=== PATIENT | female | born 1990 | race Caucasian/White ===

== ENCOUNTER 2019-02-22 20:30 | Inpatient (IN) ==
[2019-02-22] MEDS ORDERED: SODIUM CHLORIDE 0.9% INJ ONE (21:10)
[2019-02-22] MEDS ORDERED: PEPCID IV ONE (21:10)
[2019-02-22] MEDS: D5 LR 1,000 ML IV SCH (21:45)
[2019-02-22 23:08] LABS: URINE SOURCE VOIDED
[2019-02-22 23:23] LABS: UR AMPHETAMINES QUAL NONE DETECTED (NONE DETECT); UR BARBITUATES QUAL NONE DETECTED (NONE DETECT); UR BENZODIAZEPIN QUAL NONE DETECTED (NONE DETECT); UR CANNABINOIDS QUAL PRESUMPTIVE POSITIVE (NONE DETECT); UR COCAINE QUAL NONE DETECTED (NONE DETECT); UR METHADONE QUAL NONE DETECTED (NONE DETECT); UR METHAMPHETAMINE QUAL NONE DETECTED (NONE DETECT); UR OPIATES QUAL NONE DETECTED (NONE DETECT); UR OXYCODONE QUAL NONE DETECTED (NONE DETECT); UR PCP QUAL NONE DETECTED (NONE DETECT); UR PROPOXYPHENE QUAL NONE DETECTED (NONE DETECT); UR TCA QUAL NONE DETECTED (NONE DETECT)
[2019-02-22 23:26] LABS: CLARITY VERY CLOUDY (CLEAR); COLOR RED; GLUCOSE URINE NEGATIVE (NEGATIVE)
[2019-02-22 23:27] LABS: BILIRUBIN URINE 1+ (NEGATIVE); BLOOD URINE 1+ (NEGATIVE); KETONE URINE 2+(Moderate) mg/dL (NEGATIVE); LEUKOCYTES URINE 2+ (NEGATIVE); NITRITE URINE NEGATIVE (NEGATIVE); PH URINE 6.5; PROTEIN URINE 1+(30 mg/dL) mg/dL (NEGATIVE); UROBILINOGEN URINE 8 mg/dL
[2019-02-22] MEDS ORDERED: D5 LR 1,000 ML IV SCH (23:45)
[2019-02-23 00:13] LABS: BASO# 0.02 X1000 (0.0-0.2); BASO% 0.2 % (0.0-0.8); EOS# 0.03 X1000 (0.0-0.7); EOS% 0.3 % (0.0-10.0); HEMATOCRIT 29.8 % (37.0-47.0); HEMOGLOBIN 9.6 g/dL (12.0-16.0); IMM GRAN# 0.08 X1000 (0.0-0.04); IMM GRAN% 0.9 % (0.0-0.5); LYMPH# 1.87 X1000 (1.2-3.4); MCH 26.3 PG (27-31); MCHC 32.2 g/dL (33-37); MCV 81.6 FL (81-99); MONO% 7.9 % (1.7-9.3); MPV 10.2 FL (7.4-10.4); NEUT# 6.19 X1000 (1.4-6.5); NEUT% 69.7 % (42.2-75.2); PLT 205 X1000 (130-400); RBC 3.65 XMIL (4.2-5.4); RDW 13.9 % (11.5-14.5); WBC 8.89 X1000 (4.8-10.8)
[2019-02-23 00:26] LABS: ESTIMATED GFR > 60
[2019-02-23 00:30] LABS: AGAP 16; ALBUMIN 3.1 g/dL (3.5-5.0); ALKALINE PHOSPHATASE 231 U/L (32-104); BUN 10 mg/dL (8-22); CALCIUM 7.4 mg/dL (8.8-10.2); CHLORIDE 95 mmol/L (98-107); COSMO 272; CREATININE 0.8 mg/dL (0.5-0.9); GLUCOSE 90 mg/dL (70-104); GOT 20 U/L (10-30); GPT 11 U/L (10-36); SODIUM 137 mmol/L (136-145); TCO2 26 mmol/L (25-35); TOTAL PROTEIN 5.8 g/dL (6.3-8.3)
[2019-02-23 00:32] LABS: POTASSIUM 2.3 mmol/L (3.5-5.1)
[2019-02-23] MEDS ORDERED: HYDROXYZINE IM ONE (00:43)
[2019-02-23] MEDS ORDERED: D5 LR + KCL 20 MEQ 1,000 ML IV SCH (00:45)
[2019-02-23] MEDS ORDERED: POTASSIUM CHLORIDE 20 MEQ/SWI 20 MEQ/100 ML IVPB IV ONE (01:06)
[2019-02-23] MEDS ORDERED: D5 LR 1,000 ML IV SCH (01:15)
[2019-02-23] MEDS: D5 LR 1,000 ML IV SCH ×4 (05:22→20:00)
[2019-02-23 09:30] LABS: ESTIMATED GFR > 60
[2019-02-23 09:41] LABS: AGAP 14; BUN 9 mg/dL (8-22); CHLORIDE 96 mmol/L (98-107); COSMO 273; CREATININE 0.7 mg/dL (0.5-0.9); GLUCOSE 111 mg/dL (70-104); POTASSIUM 2.3 mmol/L (3.5-5.1); SODIUM 137 mmol/L (136-145); TCO2 27 mmol/L (25-35)
[2019-02-23] MEDS: ZOFRAN IV PRN ×2 (10:11)
--- NOTE | 2019-02-23 10:16 | OB/GYN PROGRESS NOTE ---
Progress Note OB - . Patient Problems: Current Active Problems Problem Status Onset 37 weeks gestation of Acute Nausea and vomiting Acute Dehydration Acute Hypokalemia, gastrointestinal losses Acute Hypocalcemia Acute Substernal pain Acute OB Progress Note: Vital Signs - 24 hr 02/22/19 20:40 02/23/19 00:00 02/23/19 05:15 Temperature 97 F L 97 F L 97.4 F L Pulse Rate 105 H 110 H 90 Respiratory Rate 20 20 16 Blood Pressure 109/68 120/61 115/73 O2 Sat by Pulse Oximetry 96 97 99 02/23/19 07:05 02/23/19 07:25 Temperature 98 F Pulse Rate 99 H Respiratory Rate 20 Blood Pressure 122/81 O2 Sat by Pulse Oximetry 95 Laboratory Results - last 24 hr 02/22/19 02/22/19 02/22/19 00:03 00:03 22:40 WBC 8.89 RBC 3.65 L Hgb 9.6 L Hct 29.8 L MCV 81.6 MCH 26.3 L MCHC 32.2 L RDW Std Deviation 13.9 Plt Count 205 MPV 10.2 Immature Gran % (Auto) 0.9 H Neut % (Auto) 69.7 Lymph % (Auto) 21.0 [place] % (Auto) 7.9 Eos % (Auto) 0.3 Baso % (Auto) 0.2 Immature Gran # (Auto) 0.08 H Neut # (Auto) 6.19 Lymph # (Auto) 1.87 [place] # (Auto) 0.70 H Eos # (Auto) 0.03 Baso # (Auto) 0.02 Sodium 137 Potassium 2.3 L* Chloride 95 L Carbon Dioxide 26 Anion Gap 16 BUN 10 Creatinine 0.8 Estimated GFR/1.73 m2 > 60 BUN/Creatinine Ratio 13 Glucose 90 Calculated Osmolality 272 Calcium 7.4 L Total Bilirubin 1.00 AST 20 ALT 11 Alkaline Phosphatase 231 H Total Protein 5.8 L Albumin 3.1 L Globulin 3.0 Albumin/Globulin Ratio 1.0 Urine Source Urine Color Urine Clarity Urine pH Ur Specific [place] Urine Protein Urine Ketones Urine Blood Urine Nitrite Urine Bilirubin Urine Urobilinogen Urine WBC Urine Glucose Urine Opiates Screen NONE DETECTED Ur Oxycodone Screen NONE DETECTED Urine Methadone Screen NONE DETECTED U Propoxyphene Qual NONE DETECTED Ur Barbituates Screen NONE DETECTED Ur Tricyclics Screen NONE DETECTED Ur Phencyclidine Scrn NONE DETECTED Ur Amphetamines Screen NONE DETECTED U Methamphetamines Scrn NONE DETECTED U Benzodiazepines Scrn NONE DETECTED Urine Cocaine Screen NONE DETECTED U Cannabinoids Screen PRESUMPTIVE POSITIVE A 02/22/19 02/23/19 22:40 08:55 WBC RBC Hgb Hct MCV MCH MCHC RDW Std Deviation Plt Count MPV Immature Gran % (Auto) Neut % (Auto) Lymph % (Auto) [place] % (Auto) Eos % (Auto) Baso % (Auto) Immature Gran # (Auto) Neut # (Auto) Lymph # (Auto) [place] # (Auto) Eos # (Auto) Baso # (Auto) Sodium 137 Potassium 2.3 L* Chloride 96 L Carbon Dioxide 27 Anion Gap 14 BUN 9 Creatinine 0.7 Estimated GFR/1.73 m2 > 60 BUN/Creatinine Ratio 13 Glucose 111 H Calculated Osmolality 273 Calcium 7.0 L* Total Bilirubin AST ALT Alkaline Phosphatase Total Protein Albumin Globulin Albumin/Globulin Ratio Urine Source VOIDED Urine Color RED Urine Clarity VERY CLOUDY A Urine pH 6.5 Ur Specific [place] 1.010 Urine Protein 1+(30 mg/dL) A Urine Ketones 2+(Moderate) A Urine Blood 1+ A Urine Nitrite NEGATIVE Urine Bilirubin 1+ A Urine Urobilinogen 8 Urine WBC 2+ A Urine Glucose NEGATIVE Urine Opiates Screen Ur Oxycodone Screen Urine Methadone Screen U Propoxyphene Qual Ur Barbituates Screen Ur Tricyclics Screen Ur Phencyclidine Scrn Ur Amphetamines Screen U Methamphetamines Scrn U Benzodiazepines Scrn Urine Cocaine Screen U Cannabinoids Screen 28 yo WSF followed in [place] by Dr Bergman at [facility], placed in observation on arrival last night with N/V and 16 pound weight loss over the past two weeks, as well as episodes of bilious, dark brown, and bloody emesis. She describes episodic substernal pain radiating to the midback with oral intake After improvement with IVF hydration, Ondansetron, and famotidine IV, she stated she was terribly hungry however experienced immediate recurrence of substernal radiating pain with a few bites of breakfast. She describes uncomplicated previous pregnancies and deliveries and a normal pre gnancy thus far with plans for ultrasound this coming due to size less than dates. Case discussed with Adilene Freeman, Hospitalist service, for assistance with evaluation of suspected peptic ulcer disease vs gallbladder disease, H pylori testing, eg.
[2019-02-23] MEDS: POTASSIUM CHLORIDE 20 MEQ/SWI 20 MEQ/100 ML IVPB IV SCH ×3 (10:27→21:08)
[2019-02-23] MEDS ORDERED: REGLAN IV ONE (10:57)
--- NOTE | 2019-02-23 11:08 | HISTORY AND PHYSICAL ---
ADMITTING DIAGNOSIS: 37 week +2 day with medical complications, including dehydration. HISTORY OF PRESENT ILLNESS: Samaria is a 28-year-old, 3, para 2-0-0-2, white single female, followed by Dr. Bergman at [facility] in [place], [place], presenting late last night with persistent nausea, substernal pain, vomiting, and reporting a 16 pound weight loss with the persistence of the symptoms over the past approximately 14 days. On arrival, she was quite demonstrative and system review included bilious followed by dark brown and jasmin blood episodes of emesis, recently returning to a yellow color. She recalls outpatient treatment with 2 L of IV fluids sometime last week, and a normal visit with Dr. Bergman on of last week, at which time she was treated with Macrobid and Prilosec. She returned to be seen today because she was in the area visiting family, and wishes to transfer care to [facility]. SYSTEM REVIEW: Negative for headache, visual change, peripheral swelling, decreased movement, vaginal bleeding, leakage of fluid, vaginitis symptoms, constipation, diarrhea. She notes episodes of fever and chills, but denies overt fever. She notes a history of borderline personality and previous medical treatment with Lexapro, Klonopin, lithium, Topamax, and Lamictal, but has not required therapy or taken medication for the past year. PHYSICAL EXAMINATION: VITAL SIGNS: On arrival, included afebrile, temperature 97 degrees, pulse 105, respirations nonlabored 20, pressure 110/70, oxygen saturation 96% pulse oximetry, weight 66.2 kg, stated height 4 feet 11 inches. GENERAL: Initial agitation was noted with nursing assessment including blood pressure cuff, and this has tempered somewhat overnight at this dictation. HEENT: Unremarkable. Pupils are equal, round, and reactive. Sclerae are clear. Mucous membranes are moist. Tongue is pale. Pharynx is benign. Dentition is intact. NECK: Supple. Thyroid is without enlargement or tenderness. RESPIRATIONS: Even and unlabored. Breath sounds are clear to auscultation to the bases. CARDIOVASCULAR: Reveals normal rate and rhythm without murmur or gallop, and current heart rate 90. There is trace peripheral edema of the feet and hands. ABDOMEN: Benign, soft, and nontender. She points to an area of the lower sternum which has been a location of severe aching pain, worsened by oral intake, and states this pain radiates to the midback when it occurs. Fundus is soft and nontender. Fundal height 33, longitudinal lie, cephalic presentation. PELVIC: Examination was not repeated in the absence of regular contractions, and was thought to be 1 to 2, 50 percent, -2 on arrival. heart rate tracing is reactive and reassuring, category 1. She responded only partially to IV fluid hydration. INITIAL LABS: Hypokalemia 2.3 mEq/L, decreased chloride 95, BUN 10, creatinine 0.8, calcium 7.4. Normal liver function tests. Hemoglobin 9.6, normal platelets 205,000, normal differential. Urinalysis: Cloudy, red, 1+ protein, 2+ ketones, 1+ blood, negative nitrites, 2+ WBCs. Urine drug screen revealed presumptive positive cannabinoids. ASSESSMENT: 1. 37 week with nausea, vomiting, and dehydration. 2. Gastritis, possible peptic ulcer. 3. Possible gallbladder disease. 4. Marijuana use. 5. Short stature. 6. Borderline personality and previous treatment for anxiety and depression, not on medication. 7. Desire for transfer of care to [facility]. PLAN: 1. Treated and responded partially to intravenous fluid bolus with promethazine, and received 20 mEq of potassium, and slept soundly after a dose of ondansetron. She verbalizes a good appetite this morning. Recheck labs include potassium 2.3 and calcium 7. 2. Plan light diet with continued hydration, potassium supplementation, and anticipation of discharge. 3. She is scheduled for ultrasound in Dr. Bergman's office this week, and I encouraged her to follow through with care in [place] until she secures an appointment here. Records request has been sent for her records. She expresses good understanding of the issues and recommendations discussed.
[2019-02-23] MEDS: PRILOSEC PO SCH (11:59)
[2019-02-23] MEDS: G.I. COCKTAIL PO SCH ×2 (12:38→17:03)
--- NOTE | 2019-02-23 13:06 | Diag Imaging Result Doc PS360 ---
EXAM: US ABDOMEN-COMPLETE HISTORY: 37 week with substernal pain, N/V TECHNIQUE: Abdominal ultrasound COMPARISON: None. FINDINGS: Normal pancreatic head and body. The tail is obscured. Normal inferior vena cava. No aortic aneurysm. Prominent right-sided hydronephrosis. No focal hepatic abnormality. There is sludge versus small stones within the gallbladder. The wall is not thickened. The common bile duct measures 3 mm. Normal left kidney. No hydronephrosis. Normal spleen. No ascites.. IMPRESSION: Prominent right-sided hydronephrosis. Electronically signed by Keny Mccracken 02/23/2019 1:03 PM
--- NOTE | 2019-02-23 16:57 | CONSULTATION ---
DATE OF CONSULTATION: 02/23/2019 REASON FOR CONSULTATION: Abdominal pain. HISTORY OF PRESENT ILLNESS: Patient is a 28-year-old female who is currently . She presented to the hospital with epigastric pain and subsequently had some bilious dark brown emesis. She describes as substernal pain, hurts when she eats or drinks. Does not matter what she eats or drinks. In fact, she had 1 bite of toast and 1 small bite of a banana and started vomiting. PAST MEDICAL HISTORY: No current active medical problems. ALLERGIES: None. PRESCRIPTION MEDICATIONS: None. FAMILY HISTORY: Noncontributory. SOCIAL HISTORY: Does not drink. Denies alcohol or cigarettes. PHYSICAL EXAMINATION: Vital Signs: Reviewed. Temperature 97 degrees, pulse 105, respiratory, blood pressure 115/73, saturating 99% on room air. General: Patient is awake, alert. She is in no current respiratory distress. HEENT: Normocephalic. Neck: Supple. Cardiovascular: Regular rate. No murmurs. Chest: Clear, nonlabored. Abdomen: Soft, gravid, tender in the epigastric right upper quadrant region. Extremities: Moves all extremities. No focal changes. No edema. Skin: No rashes. ASSESSMENT: 1. Epigastric abdominal pain. 2. Nausea and vomiting, 3. Hypokalemia. PLAN: We will give patient a GI cocktail, replace her potassium. Continue Protonix twice daily. Continue IV fluids. Check an ultrasound of her abdomen and will follow. cc: Lyndon Head MD
[2019-02-23 18:41] LABS: AGAP 14; BUN 8 mg/dL (8-22); CHLORIDE 99 mmol/L (98-107); COSMO 276; CREATININE 0.6 mg/dL (0.5-0.9); ESTIMATED GFR > 60; GLUCOSE 99 mg/dL (70-104); POTASSIUM 2.7 mmol/L (3.5-5.1); SODIUM 139 mmol/L (136-145); TCO2 26 mmol/L (25-35)
[2019-02-23] MEDS: SODIUM CHLORIDE 0.9% INJ SCH (21:06)
[2019-02-23] MEDS: PROTONIX IV SCH (21:06)
[2019-02-24] MEDS: D5 LR 1,000 ML IV SCH ×2 (03:45→10:05)
[2019-02-24] MEDS: POTASSIUM CHLORIDE 20 MEQ/SWI 20 MEQ/100 ML IVPB IV SCH (03:50)
[2019-02-24 06:10] LABS: HEMATOCRIT 27.3 % (37.0-47.0); HEMOGLOBIN 8.4 g/dL (12.0-16.0); MCH 25.9 PG (27-31); MCHC 30.8 g/dL (33-37); MCV 84.3 FL (81-99); MPV 10.4 FL (7.4-10.4); RBC 3.24 XMIL (4.2-5.4); RDW 13.8 % (11.5-14.5); WBC 6.34 X1000 (4.8-10.8)
[2019-02-24 06:38] LABS: AGAP 11; ALBUMIN 2.6 g/dL (3.5-5.0); ALKALINE PHOSPHATASE 200 U/L (32-104); BUN 6 mg/dL (8-22); CALCIUM 7.2 mg/dL (8.8-10.2); CHLORIDE 105 mmol/L (98-107); COSMO 280; CREATININE 0.6 mg/dL (0.5-0.9); ESTIMATED GFR > 60; GLUCOSE 81 mg/dL (70-104); GOT 16 U/L (10-30); GPT 10 U/L (10-36); MAGNESIUM 1.6 mg/dL (1.5-2.7); SODIUM 142 mmol/L (136-145); TCO2 26 mmol/L (25-35); TOTAL PROTEIN 5.1 g/dL (6.3-8.3)
[2019-02-24] MEDS: PRILOSEC PO SCH (07:14)
[2019-02-24] MEDS: SODIUM CHLORIDE 0.9% INJ SCH (08:37)
[2019-02-24] MEDS: PROTONIX IV SCH (08:37)
[2019-02-24] MEDS: G.I. COCKTAIL PO SCH ×2 (08:42→14:11)
[2019-02-24] MEDS ORDERED: POTASSIUM CHLORIDE 20 MEQ/SWI 20 MEQ/100 ML IVPB IV ONE (09:00)
--- NOTE | 2019-02-24 11:03 | OB/GYN PROGRESS NOTE ---
Progress Note OB - . Patient Problems: Current Active Problems Problem Status Onset Hydronephrosis determined by ultrasound Acute Substernal pain Acute Hypocalcemia Acute Hypokalemia, gastrointestinal losses Acute Dehydration Acute Nausea and vomiting Acute 37 weeks gestation of Acute OB Progress Note: Vital Signs - 24 hr 02/23/19 12:00 02/23/19 16:00 02/23/19 20:00 Temperature 97.5 F L 97.2 F L 97.7 F Pulse Rate 90 87 94 H Respiratory Rate 20 18 18 Blood Pressure 114/71 110/69 114/75 O2 Sat by Pulse Oximetry 97 99 100 02/24/19 00:09 02/24/19 03:48 02/24/19 07:15 Temperature 97.6 F 97.7 F Pulse Rate 98 H 88 92 H Respiratory Rate 18 16 16 Blood Pressure 116/61 104/51 118/78 O2 Sat by Pulse Oximetry 98 97 99 Laboratory Results - last 24 hr 02/23/19 02/24/19 02/24/19 18:09 05:54 05:54 WBC RBC Hgb Hct MCV MCH MCHC RDW Std Deviation Plt Count MPV Sodium 139 142 Potassium 2.7 L D 3.0 L Chloride 99 105 Carbon Dioxide 26 26 Anion Gap 14 11 BUN 8 6 L Creatinine 0.6 0.6 Estimated GFR/1.73 m2 > 60 > 60 BUN/Creatinine Ratio 13 10 Glucose 99 81 Calculated Osmolality 276 280 Calcium 7.0 L* 7.2 L Magnesium 1.6 Total Bilirubin 0.80 AST 16 ALT 10 Alkaline Phosphatase 200 H Total Protein 5.1 L Albumin 2.6 L Globulin 3.0 Albumin/Globulin Ratio 1.0 TSH 2.49 02/24/19 05:54 WBC 6.34 RBC 3.24 L Hgb 8.4 L Hct 27.3 L MCV 84.3 MCH 25.9 L MCHC 30.8 L RDW Std Deviation 13.8 Plt Count 160 MPV 10.4 Sodium Potassium Chloride Carbon Dioxide Anion Gap BUN Creatinine Estimated GFR/1.73 m2 BUN/Creatinine Ratio Glucose Calculated Osmolality Calcium Magnesium Total Bilirubin AST ALT Alkaline Phosphatase Total Protein Albumin Globulin Albumin/Globulin Ratio TSH
[2019-02-24 11:17] LABS: BILIRUBIN URINE 1+ (NEGATIVE); BLOOD URINE 4+ (NEGATIVE); GLUCOSE URINE NEGATIVE (NEGATIVE); KETONE URINE TRACE mg/dL (NEGATIVE); LEUKOCYTES URINE 2+ (NEGATIVE); NITRITE URINE NEGATIVE (NEGATIVE); PROTEIN URINE 1+(30 mg/dL) mg/dL (NEGATIVE); UROBILINOGEN URINE 8 mg/dL
[2019-02-24 11:18] LABS: CLARITY VERY CLOUDY (CLEAR); COLOR YELLOW
[2019-02-24 11:19] LABS: URINE BACTERIA 3+ /HFP; URINE RBC TNTC /HPF (<10); URINE SOURCE CLEAN CATCH; URINE WBC 20-40 /HPF (<10)
[2019-02-24] MEDS ORDERED: NS 1,000 ML IV SCH (12:00)
[2019-02-24] MEDS ORDERED: ROCEPHIN 2 GM in NS 50 ML IV ONE (12:30)
[2019-02-24 13:35] VITALS: BP 137/85
--- NOTE | 2019-02-24 15:38 | DISCHARGE SUMMARY ---
ADMISSION DATE: 02/22/2019 DISCHARGE DATE: 02/24/2019 ADMITTING DIAGNOSIS: A 37-week with medical complications, including nausea/vomiting, dehydration, and substernal pain. FINAL DISCHARGE DIAGNOSES: 1. A 37+ week , undelivered, with medical complications. 2. Oliguria, hematuria, unresponsive to intravenous fluid hydration. 3. Peptic ulcer symptoms, responding to medical management. 4. Urinary tract infection. 5. Previous marijuana use. TRANSFER MEDICATIONS: 1. Rocephin 2 g IV in process. 2. Normal saline IV fluids 100 mL/h. 3. Protonix 40 mg IV q.12 h. HISTORY OF PRESENT ILLNESS: Samaria is a 28-year-old 3, para 2-0-0-2, white single female, former smoker, followed by Dr. Bergman of [facility] in [place], [place], presenting here late on the evening of Monday, February 22, with a 2-week history of nausea/vomiting, intolerance of oral intake, 16-pound weight loss, and substernal pain worsening with attempts to eat. Following admission, she gave additional history of progressively darkening discolored urine for the past 3 to 4 weeks and recalls being given a prescription of Macrobid for apparent UTI of which she was able to take 1 dose on the and vomited her attempted dose on the morning of February 22. Admission laboratories included electrolytes with hypokalemia. Creatinine 0.8, BUN 13. Liver functions normal. Urinalysis after a liter of IVF fluid revealed 1.010 specific gravity, 1+ blood, 1+ protein, 2+ ketones, 2+ WBC, bacteria not listed. Urine screen revealed presumptive positive cannabinoids. White count was 8.9, hemoglobin 9.6, hematocrit 29.8, platelets 205,000. Hospitalist consult was obtained, and treatment for peptic ulcer symptoms begun with GI cocktail 3 times daily and Protonix 40 mg IV twice daily. She responded briefly to Phenergan and Zofran overnight Monday with immediate resumption of symptoms after a bite of toast and eggs Monday morning. Intravenous hydration at 200 mL/hr and postassium supplementation totaling over 80 mEq were given Imaging included gallbladder revealing possible sludge, normal ducts, significant right hydronephrosis, and a possible R calyceal renal stone. Despite hydration at 200 mL an hour, urine output remained nominal. Over the course of her hospitalization, she has received approximately 8 L of fluid with less than 1 L output. Electrolytes today reveal potassium up to 3.0. Liver functions normal. Magnesium 1.6. TSH 2.49. Urinalysis: Specific gravity is 1.000 with an increase to 4+ blood, red blood cells too numerous to count, 2+ white cells, 20-40 WBCper high-power field, and 3+ bacteria. Microscopic had not obtained on admission. PHYSICAL EXAMINATION: Her examination is benign. Abdomen is soft and nontender. I cannot elicit right-sided CVA tenderness. Fundus is soft and nontender. Fundal height 33 mm, consistent with her short stature. heart rate tracing is category 1. Cervix on arrival was 1 to 2 cm, 50%, - 2 station. Membranes intact and regular contractions have not occurred during her hospitalization. On discussion with the urologist on staff, evaluation would be challenging due to the absence of surgical facilities at this hospital and the absence of maternity facilities at the [facility]. I discussed the case with Dr. Allie Galvan, the OB hospitalist and [facility] [place] [facility], who has accepted the patient for further evaluation of oliguria, hematuria, UTI, hydronephrosis at 37 weeks . I have discussed the rationale for transfer of care with [facility], including the need for appropriate specialists to be present in the same facility with the possibility of proceeding with delivery, in order to evaluate the renal concerns with appropriate imaging and instrumentation thereafter. She expresses good understanding and agreement with the plan of care and arrangements are in progress for ambulance transfer to [facility] [place] [facility] this afternoon. cc: Allie Galvan MD [facility] SYSTEM[facility]
--- NOTE | 2019-02-24 22:34 | PROGRESS NOTE ---
DATE: 02/24/2019 SUBJECTIVE: Patient notes that she is feeling tremendously better this morning. Her nausea is improved with the GI cocktail. Denies any fevers or chills. PHYSICAL EXAMINATION: Vital Signs: Reviewed. General: She is awake, alert. She is in no distress. HEENT: Normocephalic. Neck: Supple. Cardiovascular: Regular rate. No murmurs. Chest: Clear and nonlabored. Abdomen: Soft, nondistended, nontender in the epigastric region today. Extremities: Moves all extremities. ASSESSMENT: 1. Hypokalemia. Continue to replace. 2. Epigastric pain. Expect this is more due to peptic ulcer disease. 3. . 4. Hydronephrosis of undetermined origin. PLAN: We will continue patient on GI cocktail. Continue to follow. I believe a urine culture has already been ordered and this needs to be followed up as she certainly could have the infection causing her hydronephrosis or simply due to . We will follow. cc: Lyndon Head MD
== END 2019-02-24 13:48 | disposition short-term general hospital (02) | DRG 832 ==
LOC: P.OPLD 20:30 → P.DIRADM 20:30 → P.LD 20:39 → EDCLIBED 20:40 → P.LD 02-23 13:48 → P.OPLD 02-24 13:48 → P.LD 02-27 10:03
PROVIDERS: ADMIT Obstetrics & Gynecology; ATTEND Obstetrics & Gynecology
CPT/HCPCS: 76700; 80048; 80053; 80104; 80301; 80305; 81001; 81003; 83735; 84443; 85025; 85027; 87077; 87088; 87186; A9270; C9113; G0431; G0434; G0477; J0696; J2405; J2765; J3480; J7030; J7121; S0028; S0164

== ENCOUNTER 2019-03-02 19:35 | Inpatient (IN) ==
[2019-03-02 19:59] LABS: URINE SOURCE VOIDED
[2019-03-02 20:06] LABS: BILIRUBIN URINE NEGATIVE (NEGATIVE); BLOOD URINE NEGATIVE (NEGATIVE); CLARITY CLEAR (CLEAR); COLOR YELLOW; GLUCOSE URINE NEGATIVE (NEGATIVE); KETONE URINE NEGATIVE (NEGATIVE); LEUKOCYTES URINE TRACE (NEGATIVE); NITRITE URINE NEGATIVE (NEGATIVE); PROTEIN URINE NEGATIVE (NEGATIVE); SP GRAVITY URINE 1.005; UROBILINOGEN URINE NORMAL
[2019-03-02 20:48] LABS: UR AMPHETAMINES QUAL NONE DETECTED (NONE DETECT); UR BARBITUATES QUAL NONE DETECTED (NONE DETECT); UR BENZODIAZEPIN QUAL NONE DETECTED (NONE DETECT); UR CANNABINOIDS QUAL NONE DETECTED (NONE DETECT); UR COCAINE QUAL NONE DETECTED (NONE DETECT); UR METHADONE QUAL NONE DETECTED (NONE DETECT); UR METHAMPHETAMINE QUAL NONE DETECTED (NONE DETECT); UR OPIATES QUAL NONE DETECTED (NONE DETECT); UR OXYCODONE QUAL NONE DETECTED (NONE DETECT); UR PCP QUAL NONE DETECTED (NONE DETECT); UR PROPOXYPHENE QUAL NONE DETECTED (NONE DETECT); UR TCA QUAL NONE DETECTED (NONE DETECT)
[2019-03-02] MEDS ORDERED: REGLAN PO ONE (20:54)
[2019-03-02] MEDS ORDERED: PEPCID PO ONE (20:54)
[2019-03-02] MEDS ORDERED: AMPICILLIN 2 GM/NS 2 GM/100 ML IVPB IV ONE (20:54)
[2019-03-02] MEDS ORDERED: PEPCID PO PRN (20:54)
[2019-03-02] MEDS ORDERED: ZOFRAN IV PRN (20:54)
[2019-03-02] MEDS ORDERED: STADOL IV PRN (20:54)
[2019-03-02] MEDS ORDERED: KEFZOL 1 GM/D5W 1 GM/50 ML IVPB IV PRN (20:54)
[2019-03-02] MEDS ORDERED: PEPCID IV PRN (20:54)
[2019-03-02] MEDS ORDERED: TYLENOL PO PRN (20:54)
[2019-03-02] MEDS ORDERED: PITOCIN 30 UNITS/NS 30 UNIT/500 ML IV.SOLN IV SCH (21:00)
[2019-03-02] MEDS ORDERED: SODIUM CHLORIDE 0.9% INJ SCH (21:00)
[2019-03-02] MEDS: LR 1,000 ML IV SCH (22:55)
[2019-03-02 23:54] LABS: BASO# 0.02 X1000 (0.0-0.2); BASO% 0.2 % (0.0-0.8); HEMOGLOBIN 8.5 g/dL (12.0-16.0); RDW 14.4 % (11.5-14.5)
--- NOTE | 2019-03-02 23:59 | HISTORY AND PHYSICAL ---
CHIEF COMPLAINT: Leakage of fluid. HISTORY OF PRESENT ILLNESS: Ms Ordaz is a 28-year-old G3, P2-0-0-2 at 38 weeks and 3 days per patient calculations with complaint of leakage of fluid. Patient admits to spontaneous rupture of membranes occurring this evening. Denies abdominal pain, fevers, chills, nausea, vomiting, reports good movement, denies vaginal bleeding. MEDICATIONS: Include Prilosec and vitamins. PAST MEDICAL HISTORY: Anxiety, depression, GERD, recurrent urinary tract infections with current . PAST SURGICAL HISTORY: Denied. LEAD SYSTEMS ENGINEER HISTORY: Denies STI exposure. OBSTETRICAL HISTORY: G3, P2-0-0-2, 2 prior term vaginal delivery. SOCIAL HISTORY: Denies tobacco, alcohol, or drug use. ALLERGIES: No known drug allergies. FAMILY HISTORY: Noncontributory. PHYSICAL EXAMINATION: VITAL SIGNS: Temperature 97.7 degrees, blood pressure 135/82, pulse rate 103, respiration rate 18, O2 saturations 100% on room air . GENERAL: No acute distress. Alert, awake, oriented x3. CARDIOVASCULAR: Regular rate and rhythm. Positive S1, S2. RESPIRATION: Clear to auscultation bilaterally. No rhonchi or rales. No wheezing. ABDOMEN: Gravid, soft, nontender to palpation. EXTREMITIES: No calf tenderness. Sterile vaginal exam 3 cm dilated, 50% effaced, -2 station. ULTRASOUND: showed 37 weeks and 2 day fetus with ROCIO of 11.5 in vertex position, ROM plus: positive for membrane rupture. NST:reactive, CAT TOCO:irregular contractions. ASSESSMENT: Ms. Ordaz is a 28-year-old G3, P2-0-0-2 at 37 weeks and 2 days based on today's ultrasound but patient reporting GA of 38 weeks and 3 days, who presents to Labor and Delivery with spontaneous rupture of membranes. PLAN: 1. Admit to Labor and Delivery for anticipated vaginal delivery. 2. Obtain labs. Patient has had care but currently Labor and Delivery has not been able to obtain records . 3. Will advance with IV Pitocin if no cervical change noted. 4. Will start GBS prophylaxis based on unknown GBS status with ampicillin. 5. Will continue monitoring and toco monitoring. [facility]
[2019-03-03 00:51] LABS: RAPID HIV PRESUMPTIVE NEGATIVE
[2019-03-03 00:58] LABS: EOS# 0.14 X1000 (0.0-0.7); EOS% 1.7 % (0.0-10.0); HEMATOCRIT 27.3 % (37.0-47.0); IMM GRAN# 0.09 X1000 (0.0-0.04); IMM GRAN% 1.1 % (0.0-0.5); LYMPH# 2.14 X1000 (1.2-3.4); LYMPH% 25.9 % (20.5-51.1); MCH 25.9 PG (27-31); MCHC 31.1 g/dL (33-37); MCV 83.2 FL (81-99); MONO# 0.94 X1000 (0.11-0.59); MONO% 11.4 % (1.7-9.3); MPV 10.9 FL (7.4-10.4); NEUT# 4.92 X1000 (1.4-6.5); NEUT% 59.7 % (42.2-75.2); PLT 194 X1000 (130-400); RBC 3.28 XMIL (4.2-5.4); WBC 8.25 X1000 (4.8-10.8)
[2019-03-03 01:14] LABS: RPR NON-REACTIVE (NONREACTIVE)
[2019-03-03] MEDS: AMPICILLIN 1 GM/NS 1 GM/50 ML IVPB IV SCH ×3 (03:00→11:00)
--- NOTE | 2019-03-03 07:06 | OB/GYN PROGRESS NOTE ---
Progress Note OB - . Patient Problems: Current Active Problems Problem Status Onset membrane rupture Acute PROM with onset of labor more than 24 hours following rupture Acute OB Progress Note: Vital Signs - 24 hr 03/02/19 20:00 03/03/19 00:35 03/03/19 03:30 Temperature 97.7 F 96.8 F L 97 F L Pulse Rate 103 H 101 H 106 H Respiratory Rate 18 18 18 Blood Pressure 135/82 133/63 115/74 O2 Sat by Pulse Oximetry 100 95 97 Laboratory Results - last 24 hr 03/02/19 03/02/19 03/02/19 19:35 19:50 20:30 WBC RBC Hgb Hct MCV MCH MCHC RDW Std Deviation Plt Count MPV Immature Gran % (Auto) Neut % (Auto) Lymph % (Auto) [place] % (Auto) Eos % (Auto) Baso % (Auto) Immature Gran # (Auto) Neut # (Auto) Lymph # (Auto) [place] # (Auto) Eos # (Auto) Baso # (Auto) Corrected WBC (Man) Glucose Urine Source VOIDED Urine Color YELLOW Urine Clarity CLEAR Urine pH 7.0 Ur Specific [place] 1.005 Urine Protein NEGATIVE Urine Ketones NEGATIVE Urine Blood NEGATIVE Urine Nitrite NEGATIVE Urine Bilirubin NEGATIVE Urine Urobilinogen NORMAL Urine WBC TRACE A Urine Glucose NEGATIVE Membranes Rupture POSITIVE Urine Opiates Screen NONE DETECTED Ur Oxycodone Screen NONE DETECTED Urine Methadone Screen NONE DETECTED U Propoxyphene Qual NONE DETECTED Ur Barbituates Screen NONE DETECTED Ur Tricyclics Screen NONE DETECTED Ur Phencyclidine Scrn NONE DETECTED Ur Amphetamines Screen NONE DETECTED U Methamphetamines Scrn NONE DETECTED U Benzodiazepines Scrn NONE DETECTED Urine Cocaine Screen NONE DETECTED U Cannabinoids Screen NONE DETECTED RPR HIV 1&2 Antibody Rapid Blood Type Antibody Screen 03/02/19 03/02/19 03/02/19 22:55 22:55 22:55 WBC Cancelled RBC Cancelled Hgb Cancelled Hct Cancelled MCV Cancelled MCH Cancelled MCHC Cancelled RDW Std Deviation Cancelled Plt Count Cancelled MPV Cancelled Immature Gran % (Auto) Cancelled Neut % (Auto) Cancelled Lymph % (Auto) Cancelled [place] % (Auto) Cancelled Eos % (Auto) Cancelled Baso % (Auto) Cancelled Immature Gran # (Auto) Cancelled Neut # (Auto) Cancelled Lymph # (Auto) Cancelled [place] # (Auto) Cancelled Eos # (Auto) Cancelled Baso # (Auto) Cancelled Corrected WBC (Man) Cancelled Glucose 83 Urine Source Urine Color Urine Clarity Urine pH Ur Specific [place] Urine Protein Urine Ketones Urine Blood Urine Nitrite Urine Bilirubin Urine Urobilinogen Urine WBC Urine Glucose Membranes Rupture Urine Opiates Screen Ur Oxycodone Screen Urine Methadone Screen U Propoxyphene Qual Ur Barbituates Screen Ur Tricyclics Screen Ur Phencyclidine Scrn Ur Amphetamines Screen U Methamphetamines Scrn U Benzodiazepines Scrn Urine Cocaine Screen U Cannabinoids Screen RPR NON-REACTIVE HIV 1&2 Antibody Rapid Blood Type Antibody Screen 03/02/19 03/02/19 03/02/19 22:55 22:55 22:55 WBC 8.25 RBC 3.28 L Hgb 8.5 L Hct 27.3 L MCV 83.2 MCH 25.9 L MCHC 31.1 L RDW Std Deviation 14.4 Plt Count 194 MPV 10.9 H Immature Gran % (Auto) 1.1 H Neut % (Auto) 59.7 Lymph % (Auto) 25.9 [place] % (Auto) 11.4 H Eos % (Auto) 1.7 Baso % (Auto) 0.2 Immature Gran # (Auto) 0.09 H Neut # (Auto) 4.92 Lymph # (Auto) 2.14 [place] # (Auto) 0.94 H Eos # (Auto) 0.14 Baso # (Auto) 0.02 Corrected WBC (Man) MEDICAL MANAGEMENT SPECIALIST Glucose Urine Source Urine Color Urine Clarity Urine pH Ur Specific [place] Urine Protein Urine Ketones Urine Blood Urine Nitrite Urine Bilirubin Urine Urobilinogen Urine WBC Urine Glucose Membranes Rupture Urine Opiates Screen Ur Oxycodone Screen Urine Methadone Screen U Propoxyphene Qual Ur Barbituates Screen Ur Tricyclics Screen Ur Phencyclidine Scrn Ur Amphetamines Screen U Methamphetamines Scrn U Benzodiazepines Scrn Urine Cocaine Screen U Cannabinoids Screen RPR NON-REACTIVE HIV 1&2 Antibody Rapid PRESUMPTIVE NEGATIVE Blood Type O POSITIVE Antibody Screen NEGATIVE HPI: Pt seen and examined. Currently w/o complaints. Reports good FM. Denies contractions or VB. Also denies LOF since admission. Denies fever/chills/n/v VS: please see above SSE: +ROM SVE: 3 cm/thick/-3 EFM: 125 bpm, moderate variability, +accelerations, -decelerations TOCO: irregular contractions ASSESSMENT: 28 yo @ 27w 3 d with PROM PLAN: -no cervical change, start pitocin for augmentation of labor -continue GBS ppx -con't EFM -monitor for signs of infection secondary to prolonged rupture -EFM 7 lbs, anticipate vaginal delivery
[2019-03-03] MEDS: LR 1,000 ML IV SCH ×2 (07:24→08:10)
--- NOTE | 2019-03-03 07:44 | Diag Imaging Result Doc PS360 ---
EXAM: US OBS COMPLETE > 14 WKS - 03/02/2019 HISTORY: confirm dates TECHNIQUE: Obstetrical ultrasound greater than 14 weeks limited COMPARISON: None. FINDINGS: There is a single live intrauterine in cephalic presentation. The estimated gestational age based on parameters from today's exam is 37 weeks two days +/- 16 days. The heart rate is 124 bpm. The estimated weight is 3241 +/- 395g. The placenta is anteriorly located and is unremarkable. The amniotic fluid index measures 11.44 cm. There are no discrete complications identified. IMPRESSION: Single live intrauterine . The estimated gestational age based on parameters from today's exam is 37 weeks two days +/- 16 days. The heart rate is 124 bpm. The gynaecological oncologist radiologist provided preliminary results at 11:03 PM on 03/03/2019. Electronically signed by Rudy Zheng 03/03/2019 7:41 AM
[2019-03-03] MEDS ORDERED: FENTANYL-BUPIV-NS 2 MCG-0.1% 200 ML EPIDURAL SCH (08:00)
[2019-03-03] MEDS: NAROPIN 0.2% INJ ONE ×2 (08:36→11:07)
[2019-03-03] MEDS ORDERED: XYLOCAINE-MPF 1% INJ PRN ×2 (10:44→12:44)
[2019-03-03] MEDS: PRECARE PO SCH (11:58)
[2019-03-03] MEDS ORDERED: HYDROXYZINE IM PRN (12:44)
[2019-03-03] MEDS ORDERED: PERI MEDS (DERMOPLAST/NUPERCAINAL/TUCKS) MISC PRN (12:44)
[2019-03-03] MEDS ORDERED: BENADRYL IV PRN (12:44)
[2019-03-03] MEDS ORDERED: M-M-R II VACCINE SUBQ ONE (12:44)
[2019-03-03] MEDS ORDERED: MINERAL OIL PO PRN (12:44)
[2019-03-03] MEDS ORDERED: ATARAX PO PRN (12:44)
[2019-03-03] MEDS ORDERED: NORCO-5 PO PRN (12:44)
[2019-03-03] MEDS ORDERED: NORCO-10 PO PRN (12:44)
[2019-03-03] MEDS ORDERED: AMBIEN PO PRN (12:44)
[2019-03-03] MEDS ORDERED: BOOSTRIX VACCINE IM ONE (12:44)
[2019-03-03] MEDS ORDERED: CYTOTEC PO PRN (12:44)
[2019-03-03] MEDS ORDERED: BENADRYL PO PRN (12:44)
[2019-03-03] MEDS ORDERED: PITOCIN IM PRN (12:44)
[2019-03-03] MEDS ORDERED: PITOCIN 30 UNITS/NS 30 UNIT/500 ML IV.SOLN IV SCH (12:45)
[2019-03-03] MEDS ORDERED: PITOCIN 20 UNITS/NS 20 UNITS/1,000 ML IV.SOLN IV SCH (12:45)
[2019-03-03] MEDS ORDERED: PITOCIN 20 UNITS/NS 20 UNITS/1,000 ML IV.SOLN ONE (13:03)
[2019-03-03 14:10] LABS: RUBELLA SCREEN IMMUNE (IMMUNE)
--- NOTE | 2019-03-03 14:18 | OPERATIVE NOTE ---
PROCEDURE DATE: 03/03/2019 DESCRIPTION OF DELIVERY: Patient progressed to complete and pushing. Had spontaneous vaginal delivery of a female infant, 6 pounds 12 ounces with Apgars of 7 and 10 at 12:27 on 03/03/2019 over intact perineum. Placenta was delivered intact with 3-vessel cord. ESTIMATED BLOOD LOSS: 150 mL. ANESTHESIA: Epidural. COUNTS: All counts were correct x2. cc: Cristo Miguel III, MD
[2019-03-03] MEDS: PRILOSEC PO SCH (15:27)
[2019-03-03] MEDS: MOTRIN PO PRN (15:27)
[2019-03-03] MEDS: PERICOLACE PO SCH (23:06)
[2019-03-04] MEDS: MOTRIN PO PRN ×3 (00:13→16:28)
[2019-03-04 06:45] LABS: BASO# 0.02 X1000 (0.0-0.2); BASO% 0.2 % (0.0-0.8); EOS# 0.07 X1000 (0.0-0.7); EOS% 0.7 % (0.0-10.0); HEMATOCRIT 24.8 % (37.0-47.0); HEMOGLOBIN 7.5 g/dL (12.0-16.0); IMM GRAN# 0.04 X1000 (0.0-0.04); IMM GRAN% 0.4 % (0.0-0.5); LYMPH% 23.4 % (20.5-51.1); MCH 25.3 PG (27-31); MCHC 30.2 g/dL (33-37); MCV 83.8 FL (81-99); MONO# 0.54 X1000 (0.11-0.59); MONO% 5.5 % (1.7-9.3); MPV 11.2 FL (7.4-10.4); NEUT# 6.88 X1000 (1.4-6.5); NEUT% 69.8 % (42.2-75.2); PLT 196 X1000 (130-400); RBC 2.96 XMIL (4.2-5.4); RDW 14.4 % (11.5-14.5); WBC 9.85 X1000 (4.8-10.8)
[2019-03-04] MEDS: PRECARE PO SCH (08:20)
[2019-03-04] MEDS: FERROUS SULFATE PO SCH (08:21)
[2019-03-04] MEDS: PRILOSEC PO SCH (08:21)
[2019-03-04 17:25] LABS: HIV ANTIBODY SCREEN SEE COMMENTS
[2019-03-04] MEDS: PERICOLACE PO SCH (20:26)
[2019-03-05] MEDS: MOTRIN PO PRN (00:02)
[2019-03-05 08:13] LABS: HEPATITIS B SURFACE ANTIGEN SEE COMMENTS
[2019-03-05 08:37] VITALS: BP 131/80
[2019-03-05] MEDS: FERROUS SULFATE PO SCH (09:07)
[2019-03-05] MEDS: PRECARE PO SCH (09:07)
[2019-03-05] MEDS: PRILOSEC PO SCH (09:08)
--- NOTE | 2019-03-05 20:08 | DISCHARGE SUMMARY ---
ADMISSION DATE: 03/02/2019 DISCHARGE DATE: 03/05/2019 ADMISSION DIAGNOSIS: Intrauterine at 37 weeks to 38 weeks gestation with spontaneous rupture of membranes. FINAL DIAGNOSES: 1. Intrauterine at 37 weeks to 38 weeks gestation with spontaneous rupture of membranes. 2. Spontaneous vaginal delivery of a female infant, 6 pounds 12 ounces. 's of 7 and 10 at 12:27 on 03/03/2019. PROCEDURE: Spontaneous vaginal delivery. BRIEF HISTORY: The patient is a 28-year-old white female G3, P2 at 38 and 3/7 weeks under the care of a Antelmo Headley in [place]. The patient was up here in [facility] when she had spontaneous rupture of membranes. MEDICATIONS: Prilosec and vitamins. ALLERGIES: No known drug allergies. PAST MEDICAL HISTORY: Anxiety, depression, GERD and recurring urinary tract infections. PAST SURGICAL HISTORY: None. BEHAVIORAL PSYCHOLOGIST HISTORY: The patient denies STI exposure. OBSTETRICAL HISTORY: G3, P2 spontaneous vaginal delivery x2. SOCIAL HISTORY: The patient reports tobacco none. Alcohol none. FAMILY HISTORY: Noncontributory. PHYSICAL EXAMINATION: Vital Signs: Temp 97.7 degrees, blood pressure 133/82, pulse of 103, respirations 18. General: No acute distress. Cardiovascular: Regular rate and rhythm. Respirations: Clear to auscultation. Abdomen: Gravid, nontender. Extremities: No calf tenderness. The cervix was dilated at 3 cm, 50% effaced, -2 station. Rupture of membranes was positive. LABORATORY STUDY: Indices showed reactive indices. Contractions were noted to be irregular. ASSESSMENT AND PLAN: A 28-year-old white female G3, P2, somewhere between 37 and 38 weeks who presents to labor delivery with spontaneous rupture membranes. The patient will be placed on IV antibiotics for unknown group B strep status and started on Pitocin. We will try to obtain records. The patient then, after Pitocin was begun, had spontaneous vaginal delivery of a female infant, 6 pounds 12 ounces with Apgars of 7 and 10 at 12:27 on 03/03/2019. The patient's course was unremarkable. She was ambulatory. She had mild lochia. Her hemoglobin was low at 7.5 on day. Hematocrit was 24.8, on day #1, and patient was started on iron. On day #2, she was afebrile with stable vital signs and was doing well enough to be discharged home. DISCHARGE PLANS: The patient was discharged home. She will follow up with her physician in [place] in 1 week. Pelvic rest instructions for 6 weeks. DISCHARGE MEDICATIONS: Include: [place] 5 dispensed 20 with no refills, Colace, Motrin and iron. The patient is to continue vitamins while she is breast feeding. cc: Cristo Miguel III, MD
== END 2019-03-05 11:20 | disposition home or self-care (01) | DRG 807 ==
LOC: P.OPLD 19:35 → P.LD 19:36
PROVIDERS: ADMIT Obstetrics & Gynecology; ATTEND Obstetrics & Gynecology
CPT/HCPCS: 59025; 76805; 80104; 80301; 80305; 81003; 82947; 84112; 85025; 86592; 86701; 86703; 86762; 86850; 86900; 86901; 87340; 87389; 87390; 87491; 87591; A9270; G0431; G0434; G0477; J0290; J2590; J2795; J7120